=== PATIENT | male | born 2000 | race African-American/Black ===

== ENCOUNTER 2020-04-11 14:46 | Emergency (ER) | payer OTHER ==
[2020-04-11] MEDS ORDERED: Ibuprofen 200 MG TAB ONE (15:51)
[2020-04-11] MEDS ORDERED: Acetaminophen 500 MG TAB ONE (15:51)
[2020-04-12 17:27] LABS: SARS-CoV-2 MS2 Positive; SARS-CoV-2 N Gene Negative; SARS-CoV-2 S Gene Negative; SARS-CoV-2 orf1ab Negative
== END 2020-04-11 16:18 | disposition home or self-care (01) ==
LOC: ERS 14:46
DX: J03.90 Acute tonsillitis, unspecified (principal); Z20.828 Contact with and (suspected) exposure to other viral communicable diseases
CPT/HCPCS: 87081; 87430; 87635; 99283; U0003

== ENCOUNTER 2021-01-10 22:53 | Emergency (ER) | payer OTHER ==
[2021-01-11] MEDS ORDERED: Acetaminophen 500 MG TAB ONE (00:26)
[2021-01-11] MEDS ORDERED: Ibuprofen 800 MG TAB ONE (00:28)
[2021-01-11] MEDS ORDERED: Acetaminophen 325 MG TAB ONE (01:26)
[2021-01-11 08:45] LABS: SARS-CoV-2 PCR by NAA DETECTED (NotDetected)
== END 2021-01-11 01:52 | disposition home or self-care (01) ==
LOC: ERS 22:53
DX: U07.1 COVID-19 (principal); J06.9 Acute upper respiratory infection, unspecified
CPT/HCPCS: 87635; 87804; 99283; U0003; U0005